=== PATIENT | male | born 2000 | race American Indian/Alaskan Native ===

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

== ENCOUNTER 2021-08-07 14:15 | Emergency (ER) | payer MEDICAID ==
[2021-08-07 14:20] VITALS: BP 144/76
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
--- NOTE | 2021-08-07 16:09 | Cat Scan Report ---
CT cervical spine wo con INDICATION: trauma. TECHNIQUE: Axial CT images of the cervical spine were obtained. Sagittal and coronal reformatted images were pro duced. All CT scans at this location are performed using CT dose reduction for ALARA by means of auto mated exposure control. COMPARISON: None available. FINDINGS: ALIGNMENT: Normal alignment. VERTEBRAE: No fracture. Vertebral body heights are preserved. C1 and C2 are congruent. SPONDYLOSIS: No significant spondylosis. SOFT TISSUES: No significant soft tissue abnormality. ADDITIONAL FINDINGS: Incompletely visualized left upper lobe pulmonary nodules. The largest measures up to 1 cm. Elongated styloid processes. IMPRESSION: 1. No fracture of the cervical spine. 2. Left upper lobe pulmonary nodules with the largest measuring up to 1 cm. These are likely benign i n a patient of this age. However, CT of the chest is recommended to further characterize. Signer Name: Candelario Redd MD Signed: 08/07/2021 4:04 PM Workstation Name: [id number]
== END 2021-08-07 19:50 | disposition left against medical advice (07) ==
LOC: ED 14:15
DX: M54.2 Cervicalgia (principal); Z53.21 Procedure and treatment not carried out due to patient leaving prior to being seen by health care provider
CPT/HCPCS: 72125